=== PATIENT | female | born 1985 | race Caucasian/White ===

== ENCOUNTER 2020-09-03 11:42 | Outpatient (CLI) | payer OTHER ==
[~2020-09-03 11:42] MED LIST: DICLOFENAC POTA50 MG PO
== END 2020-09-03 12:38 | disposition home or self-care (01) ==
LOC: NST 11:42
PROVIDERS: ATTEND Obstetrics & Gynecology Maternal & Fetal Medicine
DX: Z34.83 Encounter for supervision of other normal pregnancy, third trimester (principal)

== ENCOUNTER 2020-09-06 09:15 | Outpatient (CLI) | payer OTHER | END 2020-09-06 10:16 | disposition home or self-care (01) | LOC: NST 09:15 | PROVIDERS: ATTEND Obstetrics & Gynecology | DX: Z34.83 Encounter for supervision of other normal pregnancy, third trimester (principal) ==

== ENCOUNTER 2020-09-06 14:30 | Inpatient (IN) | payer OTHER ==
[~2020-09-06] VITALS: Ht 158.8 cm; Wt 75.3 kg
[2020-09-12] MEDS ORDERED: PEPCID AC10 MG PO (11:32)
[2020-09-12] MEDS ORDERED: PRENATAL CAPLE1 EAC1 PO (11:32)
[2020-09-15] MEDS ORDERED: OXYC1TAB9 PO (08:44)
[2020-09-15] MEDS ORDERED: KETO10TA2 PO (08:45)
== END 2020-09-15 13:00 | disposition home or self-care (01) | DRG 788 ==
LOC: SURG-SUITE 09-12 11:01 → LDR 09-12 11:01 → SURG-SUITE 09-12 15:12 → OB/GYN 09-24 14:30
PROVIDERS: Obstetrics & Gynecology Maternal & Fetal Medicine; ADMIT Obstetrics & Gynecology; ATTEND Obstetrics & Gynecology
PROC: 4A1HXFZ Monitoring of Products of Conception, Cardiac Rhythm, External Approach (ICD-10-PCS; 2020-09-12)
PROC: 3E033VJ Introduction of Other Hormone into Peripheral Vein, Percutaneous Approach (ICD-10-PCS; 2020-09-12)
PROC: 10D00Z1 Extraction of Products of Conception, Low, Open Approach (ICD-10-PCS; principal; 2020-09-12 13:00)
DX: O76 Abnormality in fetal heart rate and rhythm complicating labor and delivery (principal); Z3A.38 38 weeks gestation of pregnancy; Z37.0 Single live birth; Z20.828 Contact with and (suspected) exposure to other viral communicable diseases

== ENCOUNTER 2020-09-10 11:44 | Outpatient (CLI) | payer OTHER | END 2020-09-10 13:37 | disposition home or self-care (01) | LOC: NST 11:44 | PROVIDERS: ATTEND Obstetrics & Gynecology | DX: Z34.83 Encounter for supervision of other normal pregnancy, third trimester (principal) ==

== ENCOUNTER 2020-10-07 13:27 | Day surgery (SDC) | payer OTHER ==
[~2020-10-07] VITALS: Ht 157.5 cm; Wt 68.9 kg
[~2020-10-07 13:27] MED LIST changes: +KETO10TA2 PO; +OXYC1TAB9 PO; +PEPCID AC10 MG PO; +PRENATAL CAPLE1 EAC1 PO
== END 2020-10-07 22:00 | disposition home or self-care (01) ==
LOC: SEC-K 13:27 → O/R 13:27 → CIR.AMB 13:27 → ER 13:27 → O/R 15:38 → SEC-K 15:38 → EDSTATUS 16:00 → O/R 19:50 → SEC-K 19:50 → CIR.AMB 22:00
PROVIDERS: ATTEND General Practice
DX: K35.890 Other acute appendicitis without perforation or gangrene (principal); Z20.828 Contact with and (suspected) exposure to other viral communicable diseases